=== PATIENT | female | born 1940 | race Two or more races ===

== ENCOUNTER 2019-05-14 11:28 | Emergency (ER) | payer OTHER ==
[~2019-05-14] VITALS: Ht 149.9 cm; Wt 64.0 kg
[~2019-05-14 11:28] MED LIST: ALBUAER3 IN; ASPI-404 PO; ATO40T PO; BRIM0.159 RIGHTEYE; CLOP75TA41 PO; DORZ2SOL18 RIGHTEYE; DOXY50CA PO; FURO1TAB33 PO; LATA0.0015 RIGHTEYE; LISI10TA6 PO; METO-169 PO; POTA10TA51 PO; SOLI5TAB7 PO; TRAM50TA2 PO
[2019-05-14 12:16] LABS: Basophils # (auto) 0.1 uL; Basophils % (auto) 0.8 % (0.0-2.0); Eosinophils # (auto) 0.1 uL; Eosinophils % (auto) 0.7 % (0.0-7.0); Hematocrit 43.6 % (36.0-46.0); Hemoglobin 14.3 g/dL (12.2-16.2); Lymphocytes # (auto) 1.4 uL; Lymphocytes % (auto) 18.2 % (10.0-50.0); Mean Corpuscular Hemoglobin 31.6 pg (28.0-32.0); Mean Corpuscular Hgb Conc. 32.7 g/dL (32.0-36.0); Mean Corpuscular Volume 96.7 fL (80.0-100.0); Monocytes # (auto) 0.4 uL; Monocytes % (auto) 5.7 % (0.0-12.0); Neutrophils # (auto) 5.8 uL; Neutrophils % (auto) 74.6 % (37.0-80.0); Platelet Count (auto) 75 10^3/uL (140-450); Red Blood Cells 4.51 10^6/uL (4.0-5.20); Red Cell Distribution Width 14.7 % (11.8-14.3); White Blood Cell 7.8 10^3/uL (4.4-10.8)
[2019-05-14 14:09] LABS: Potassium 4.8 mmol/L (3.5-5.1)
[2019-05-14 14:19] LABS: Albumin 3.6 g/dL (3.4-5.0); BUN/Creatinine Ratio 24.6; Bilirubin, Total 1.5 mg/dL (0.2-1.0); Calcium 9.2 mg/dL (8.5-10.1); Total Protein 6.9 g/dL (6.4-8.2)
[2019-05-14 16:00] VITALS: BP 127/60
[2019-05-14] MEDS ORDERED: FURO1TAB33 PO (17:34)
== END 2019-05-14 17:38 | disposition home or self-care (01) ==
LOC: EDBD 11:28 → ER 11:28
DX: R06.02 Shortness of breath (principal); M19.90 Unspecified osteoarthritis, unspecified site; I11.0 Hypertensive heart disease with heart failure; I50.9 Heart failure, unspecified; E78.5 Hyperlipidemia, unspecified
CPT/HCPCS: 36415; 71045; 80053; 83880; 84484; 85025; 93005